=== PATIENT | female | born 1960 | race Caucasian/White ===

== ENCOUNTER 2021-06-04 11:05 | Day surgery (SDC) | payer OTHER ==
[~2021-06-04] VITALS: Ht 170.2 cm; Wt 76.1 kg
[~2021-06-04 11:05] MED LIST: ACET500 PO; ALBU90I INH; ALBU90OI INH; ALBU90OI6 INH; ATOR80 PO; AZIT250 PO; AZIT500 PO; CEPH500 PO; CHLO25 PO; CITA20 PO; CODGUAEL PO; COMBIVENT RESPIM4 G1 INH; CRUTCH4 USE; DOXY100 PO; DULERA 200 MCG/13 GM INH; Desyrel150 MG PO; ESCI10 PO; FAMO20 PO; FLUO10 PO; FLUOXETINE HCL60 MG PO; FOLI1; FOLIC ACID; GLIP5 PO; GLUCOPHAGE1000 M1 PO; GUAI600T33 PO; HYDACE5 PO; HYDSUL200; HYDSUL200 PO; IBUP600 PO; IBUP800; IBUP800 PO; METF500C PO; MULVITMIND; NAPR500 PO; NICO21TP TOP; OLAN10 PO; OXYACE5T PO; OXYC5 PO; PANT40 PO; PENVK500 PO; POTCHL20ER PO; PRED10 PO; Prednisone10 MG PO; RXHYDACE PO; THERAPEUTIC M; TRAM50 PO; TRAZ100; TRAZ100 PO; TRAZ50 PO; VIT B 1; VITNEPH; [UNRECOGNIZED DRUG - OTHER]; [UNRECOGNIZED DRUG - REMARK]
== END 2021-06-04 14:49 | disposition home or self-care (01) ==
LOC: ORSCSDS 11:05
PROVIDERS: Internal Medicine Gastroenterology
PROC: 0DB58ZX Excision of Esophagus, Via Natural or Artificial Opening Endoscopic, Diagnostic (ICD-10-PCS; principal; 2021-06-04 12:45)
PROC: 0D758ZZ Dilation of Esophagus, Via Natural or Artificial Opening Endoscopic (ICD-10-PCS; principal; 2021-06-04 12:45)
DX: R13.10 Dysphagia, unspecified (principal); K20.90 Esophagitis, unspecified without bleeding; E11.9 Type 2 diabetes mellitus without complications; J44.9 Chronic obstructive pulmonary disease, unspecified; K22.2 Esophageal obstruction; K44.9 Diaphragmatic hernia without obstruction or gangrene; F17.210 Nicotine dependence, cigarettes, uncomplicated; Z79.84 Long term (current) use of oral hypoglycemic drugs; Z79.899 Other long term (current) drug therapy
CPT/HCPCS: 82947; 88305; 88312; J2405; J2704; J7120

== ENCOUNTER 2022-01-10 09:32 | Day surgery (SDC) | payer OTHER ==
[~2022-01-10] VITALS: Ht 170.2 cm; Wt 79.6 kg
== END 2022-01-10 11:33 | disposition home or self-care (01) ==
LOC: ORSCSDS 09:32
PROVIDERS: Student in an Organized Health Care Education/Training Program
PROC: 0DB98ZX Excision of Duodenum, Via Natural or Artificial Opening Endoscopic, Diagnostic (ICD-10-PCS; principal; 2022-01-10 10:45)
PROC: 0D758ZZ Dilation of Esophagus, Via Natural or Artificial Opening Endoscopic (ICD-10-PCS; principal; 2022-01-10 10:45)
PROC: 0DB58ZX Excision of Esophagus, Via Natural or Artificial Opening Endoscopic, Diagnostic (ICD-10-PCS; principal; 2022-01-10 10:45)
DX: R13.10 Dysphagia, unspecified (principal); K21.00 Gastro-esophageal reflux disease with esophagitis, without bleeding; B37.81 Candidal esophagitis; K22.2 Esophageal obstruction; K44.9 Diaphragmatic hernia without obstruction or gangrene; F17.210 Nicotine dependence, cigarettes, uncomplicated; J44.9 Chronic obstructive pulmonary disease, unspecified; E11.9 Type 2 diabetes mellitus without complications; E78.5 Hyperlipidemia, unspecified; F32.A Depression, unspecified; M32.9 Systemic lupus erythematosus, unspecified; Z80.0 Family history of malignant neoplasm of digestive organs; Z79.84 Long term (current) use of oral hypoglycemic drugs; Z79.899 Other long term (current) drug therapy
CPT/HCPCS: 82947; 88305; 88312; C1726; J2704; J7120

== ENCOUNTER 2023-07-05 16:06 | Emergency (ER) | payer OTHER ==
[~2023-07-05] VITALS: Ht 170.2 cm; Wt 83.9 kg
[~2023-07-05 16:06] MED LIST changes: +PROZAC20 M3 PO; +TIOT18 INH; +Ventolin5 MG/1 ML
[2023-07-05 17:30] LABS: BASOPHILS ABSOLUTE AUTO 0.06 K/mm3 (0.00-0.23); BASOPHILS PERCENT AUTO 1 % (0-2); EOSINOPHILS ABSOLUTE AUTO 0.03 K/mm3 (0.00-0.68); EOSINOPHILS PERCENT AUTO 0 % (0-6); Hematocrit 39.1 % (33.0-51.0); Hemoglobin 13.3 g/dL (11.5-16.0); IMMATURE GRAN ABSOLUTE AUTO 0.04 K/mm3 (0.00-0.10); IMMATURE GRAN PERCENT AUTO 0 % (0-1); LYMPHOCYTES ABSOLUTE AUTO 2.13 K/mm3 (0.84-5.20); LYMPHOCYTES PERCENT AUTO 18 % (21-46); MONOCYTES ABSOLUTE AUTO 0.84 K/mm3 (0.16-1.47); MONOCYTES PERCENT AUTO 7 % (4-13); Mean Corpuscular HGB 29.8 pg (26.0-34.0); Mean Corpuscular Volume 88 fL (80-100); Mean Platelet Volume 9.8 fL (9.1-12.4); NEUTROPHILS ABSOLUTE AUTO 8.82 K/mm3 (1.96-9.15); NEUTROPHILS PERCENT AUTO 74 % (41-73); Platelet Count 530 K/mm3 (150-400); RDW Coefficient Variation 13.4 % (11.7-14.2); RDW Standard Deviation 43.3 fL (35.1-46.3); Red Blood Cell Count 4.47 M/mm3 (3.80-5.20); White Blood Cell Count 11.92 K/mm3 (4.00-11.30)
[2023-07-05 17:45] LABS: Source, Urine Clean Catch
[2023-07-05 17:50] LABS: Appearance, Urine Clear (Clear); Bilirubin, Urine Neg (Neg); Blood, Urine Neg (Neg); Color, Urine Yellow (P-Yellow); Glucose Qualitative, Urine Neg (Neg); Ketones, Urine Neg (Neg); Leukocyte Esterase, Urine Neg (Neg); Nitrite, Urine Neg (Neg); Protein, Urine Neg (Neg); Specific Gravity, Urine 1.015 (1.003-1.022); Urobilinogen, Urine NORM (Normal)
[2023-07-05 17:51] LABS: Albumin, Blood 3.8 g/dL (3.4-5.0); Albumin/Globulin Ratio 0.9 (0.8-1.8); Bilirubin, Total 0.5 mg/dL (0.1-1.0); Bun/Creatinine Ratio 17.6 (12.0-20.0); Calcium, Blood 9.8 mg/dL (8.5-10.1); Creatinine, Blood 0.68 mg/dL (0.40-1.00); Globulin, Blood 4.1 g/dL (2.2-4.0); Potassium, Blood 4.2 mmol/L (3.5-5.5); Total Protein, Blood 7.9 g/dL (6.4-8.2)
[2023-07-05 19:00] VITALS: BP 177/145
== END 2023-07-05 19:13 | disposition home or self-care (01) ==
LOC: ER 16:06
PROVIDERS: Student in an Organized Health Care Education/Training Program
DX: K59.00 Constipation, unspecified (principal); F17.210 Nicotine dependence, cigarettes, uncomplicated; Z79.84 Long term (current) use of oral hypoglycemic drugs; Z79.899 Other long term (current) drug therapy
CPT/HCPCS: 74018; 74177; 80053; 81003; 83690; 85025; 99284-25; A9270; Q9967

== ENCOUNTER 2023-12-19 08:37 | Day surgery (SDC) | payer OTHER ==
[~2023-12-19 08:37] MED LIST changes: +Lactated Ringer's 1,000 ML IV SCH
--- NOTE | 2023-12-19 09:38 | NUR ---
Ambulatory in Day Surgery. PT W/ SOB. LUNGS DIM BUT CLEAR. PT STATES SHE DID NOT USE HER INHALER TODAY. 02 90% ON RA WHEN AT REST. UP TO 95% W/TALKING. Pre-Op teaching done. Pt verbalizes understanding. History, Chart, Medications and Allergies reviewed before start of procedure.Patient confirms NPO status and agrees with scheduled surgery. PT DOES REPORT WEARING 3L/MIN 02 AT NOC SINCE 2017 AFTER BEING HOSPITALIZED FOR BRONCHITIS. CASE REVIEWED BY DR. DALE. PT WILL NEED MAC. CASE CX PER DR. SANABRIA NO ANESTHESIA SERVICE AVAILABLE AT THIS TIME. PT TO BE RESCHEDULED.
== END 2023-12-19 23:23 | disposition home or self-care (01) ==
LOC: ORSCMMR 08:37 → ORD 09:30 → ORSCMMR 09:30
DX: R13.14 Dysphagia, pharyngoesophageal phase (principal); Z53.9 Procedure and treatment not carried out, unspecified reason
CPT/HCPCS: 82947; J7120

== ENCOUNTER 2024-09-10 09:36 | Day surgery (SDC) | payer OTHER ==
[~2024-09-10] VITALS: Ht 170.2 cm; Wt 79.3 kg
[~2024-09-10 09:36] MED LIST changes: +Benzocaine Oral Spray 0.5ML UD ONE; +FORMOTEROL INH; +GLYCOPYRROLATE INH; +METF500 PO; +OMEP20ER PO; +SPIRIVA RESPIMAT4 G2; +TRULICITY0.75 MG/01 SC; +propofoL 40 ML IV ONE
[2024-09-10 10:19] VITALS: BP 140/74
--- NOTE | 2024-09-10 10:48 | NUR ---
09/10/24 1048 Noe Estrada History, Chart, Medications and Allergies reviewed before start of procedure.MONITOR INTACT WITH CONTINUOUS PULSE OXIMETRY, CONTINUOUS END TITAL CO2, AND INTERMITTENT BLOOD PRESSURE.3-LEAD EKG REVIEWED WITH PHYSICIAN PRIOR TO START OF PROCEDURE.O2 VIA POM INTACT THROUGHOUT SEDATION/PROCEDURE.See Anesthesia record.
[2024-09-10] MEDS ORDERED: Triamcinolone Inj Susp 40 MG / ML 1ML Vial IM ONE (10:50)
[2024-09-10 11:30] VITALS: BP 143/68
--- NOTE | 2024-09-10 11:34 | NUR ---
DR SANABRIA TO BEDSIDE TO SPEAK W/ PT POST EGD PROCEDURE. PT REPOSITIONED SELF IN BED WITH THIS RN INSTRUCTION. DEEP BREATHS WITH COACHING. PT SATING 91-94% ON ROOM AIR. WARM BLANKET PROVIDED. REPORT GIVEN TO ELIO GARCIA.
[2024-09-10 11:45] VITALS: BP 156/69
[2024-09-10 12:00] VITALS: BP 150/66
[2024-09-10 12:15] VITALS: BP 152/63
--- NOTE | 2024-09-10 12:22 | NUR ---
PT ABLE TO TOLERATE PO FLUIDS WITHOUT DIFFICULTY. PT DENIES SORE THROAT, JAW OR CHEST; BUT KNOWS THEY MAY BECOME SORE. Discharge instructions reviewed with patient. Patient verbalizes understanding. Copy given to patient to take home. Patient States Post-Procedure ride home has been arranged.
[2024-09-10 12:30] VITALS: BP 149/79
--- NOTE | 2024-09-10 12:35 | NUR ---
Patient up to Ambulate independently. Gait steady. Discharged via wheelchair to private car for ride home.
== END 2024-09-10 12:46 | disposition home or self-care (01) ==
LOC: ORSCMMR 09:36
PROVIDERS: Internal Medicine Gastroenterology
PROC: 0D758ZZ Dilation of Esophagus, Via Natural or Artificial Opening Endoscopic (ICD-10-PCS; principal; 2024-09-10 11:00)
DX: R13.14 Dysphagia, pharyngoesophageal phase (principal); K44.9 Diaphragmatic hernia without obstruction or gangrene; K22.2 Esophageal obstruction; Z87.891 Personal history of nicotine dependence; E11.9 Type 2 diabetes mellitus without complications; J44.9 Chronic obstructive pulmonary disease, unspecified; E66.9 Obesity, unspecified; Z68.27 Body mass index [BMI] 27.0-27.9, adult; Z79.899 Other long term (current) drug therapy
CPT/HCPCS: 82947; A9270; C1726; J2704; J3301; J7120

== ENCOUNTER 2025-03-19 08:15 | Day surgery (SDC) | payer OTHER ==
[~2025-03-19] VITALS: Ht 170.2 cm; Wt 79.6 kg
[~2025-03-19 08:15] MED LIST changes: -Benzocaine Oral Spray 0.5ML UD ONE; +OZEMPIC1 MG/0.72 SC; -propofoL 40 ML IV ONE
--- NOTE | 2025-03-19 08:51 | NUR ---
Ambulatory in Day Surgery Patient confirms NPO status and agrees with scheduled surgery. Pre-Op teaching done. Pt verbalizes understanding. History, Chart, Medications and Allergies reviewed before start of procedure.Patient States Post-Procedure ride home has been arranged.
[2025-03-19] MEDS ORDERED: OZEMPIC1 MG/0.72 SQ (09:01)
[2025-03-19] MEDS ORDERED: propofoL 40 ML IV ONE (09:36)
--- NOTE | 2025-03-19 09:42 | NUR ---
03/19/25 0941 Noe Estrada History, Chart, Medications and Allergies reviewed before start of procedure.MONITOR INTACT WITH CONTINUOUS PULSE OXIMETRY, CONTINUOUS END TITAL CO2, 3-LEAD EKG AND INTERMITTENT BLOOD PRESSURE.3-LEAD EKG REVIEWED WITH PHYSICIAN PRIOR TO START OF PROCEDURE.O2 VIA POM INTACT THROUGHOUT SEDATION/PROCEDURE.See Anesthesia record.
[2025-03-19 10:09] VITALS: BP 150/71
[2025-03-19 10:22] VITALS: BP 143/70
--- NOTE | 2025-03-19 10:25 | NUR ---
Discharge instructions reviewed with patient. Patient verbalizes understanding. Copy given to patient to take home. Patient States Post-Procedure ride home has been arranged. Discharged via wheelchair to private car for ride home.
== END 2025-03-19 10:24 | disposition home or self-care (01) ==
LOC: ORSCMMR 08:15 → ORD 09:30 → ORSCMMR 10:24
PROVIDERS: Internal Medicine Gastroenterology
PROC: 0D758ZZ Dilation of Esophagus, Via Natural or Artificial Opening Endoscopic (ICD-10-PCS; principal; 2025-03-19 09:30)
PROC: 0DB48ZX Excision of Esophagogastric Junction, Via Natural or Artificial Opening Endoscopic, Diagnostic (ICD-10-PCS; principal; 2025-03-19 09:30)
DX: R13.14 Dysphagia, pharyngoesophageal phase (principal); J44.9 Chronic obstructive pulmonary disease, unspecified; E11.9 Type 2 diabetes mellitus without complications; F32.A Depression, unspecified; F40.00 Agoraphobia, unspecified; Z99.81 Dependence on supplemental oxygen; E78.00 Pure hypercholesterolemia, unspecified; Z87.891 Personal history of nicotine dependence; Z79.84 Long term (current) use of oral hypoglycemic drugs; Z79.85 Long-term (current) use of injectable non-insulin antidiabetic drugs; Z79.899 Other long term (current) drug therapy
CPT/HCPCS: 82947; 88305; C1726; J2704; J7120